=== PATIENT | female | born 1995 | race Caucasian/White ===

== ENCOUNTER 2022-02-28 09:11 | Emergency (ER) | payer BC ==
[~2022-02-28] VITALS: Ht 176.5 cm; Wt 68.2 kg
[2022-02-28 09:19] VITALS: BP 116/72
== END 2022-02-28 10:56 | disposition home or self-care (01) ==
LOC: EEVIPCON 09:11 → ER 09:11
DX: R55 Syncope and collapse (principal); R42 Dizziness and giddiness
CPT/HCPCS: 93005; 99283